=== PATIENT | male | born 1955 | race Two or more races ===

== ENCOUNTER 2024-05-29 00:28 | Emergency (ER) | payer MEDICARE, MEDICAID, SELFPAY ==
[2024-05-29 00:52] VITALS: BP 169/87; PULSE 106; RESP 18; TEMP 36.7; O2SAT 99; BMI 23.6
--- NOTE | 2024-05-29 01:05 | PD.EDRME ---
Rapid Medical Screening Exam RME Arrival date/time: 05/29/24 00:28 68 year old male present to ED for c/o of elevated blood pressure. pt is unsure of what he takes for blood pressure. I have greeted and performed a focused initial assessment of this patient. A comprehensive ED assessment and evaluation of the patient, analysis of all test results, and completion of the medical decision making process will be conducted by additional ED providers. Chief Complaint: General Adult/Misc Complain Time Seen by Provider: 05/29/24 00:29 Vital signs: Vital Signs Temperature 98.1 F 05/29/24 00:52 Pulse Rate 106 H 05/29/24 00:52 Respiratory Rate 18 05/29/24 00:52 Blood Pressure 169/87 H 05/29/24 00:52 Pulse Oximetry (%) 99 05/29/24 00:52 Oxygen Delivery Method Room Air 05/29/24 00:52
[2024-05-29 01:57] LABS: Basophils # (Auto) 0.1 Thou/mm3 (0.0-0.2); Basophils % (Auto) 0 % (0-2.5); Eosinophils # (Auto) 0.4 Thou/mm3 (0.0-0.5); Eosinophils % (Auto) 3 % (0-10); Hematocrit 33.8 % (41.0-53.0); Hemoglobin 10.3 g/dL (13.5-16.0); Immature Granulocytes % (Auto) 0 % (0-0); Immature Granulocytes Auto 0.02 Thou/mm3 (0.00-0.00); Lymphocytes # (Auto) 1.6 Thou/mm3 (1.0-4.8); Lymphocytes % (Auto) 14 % (10-50); Mean Corpuscular HGB Conc 30.5 g/dl (31.0-37.0); Mean Corpuscular Hemoglobin 22.2 pg (25.0-35.0); Mean Corpuscular Volume 73 fL (80-100); Monocytes # (Auto) 0.9 Thou/mm3 (0.0-0.8); Monocytes % (Auto) 8 % (0-12); Neutrophils # (Auto) 8.2 Thou/mm3 (1.8-7.7); Neutrophils % (Auto) 74 % (37-80); Nucleated Red Blood Cell % 0 /100 WBC (0); Platelet Count 375 Thou/mm3 (140-440); RDW Standard Deviation 48.5 fL (35.1-43.9); Red Blood Count 4.65 Miln/mm3 (4.50-5.90); White Blood Count 11.2 Thou/mm3 (3.8-10.6)
[2024-05-29 02:15] LABS: Alanine Aminotransferase 14 U/L (10-49); Albumin, Serum 4.9 gm/dL (3.4-4.8); Albumin/Globulin Ratio 1.4 (1.2-2.2); Alkaline Phosphatase 149 U/L (46-116); Anion Gap 10 (7-16); Aspartate Amino Transferase 16 U/L (0-34); BUN/Creatinine Ratio 12 Ratio (12-20); Bilirubin,Total 0.3 mg/dL (0.3-1.2); Blood Urea Nitrogen 26 mg/dL (9-23); Calcium 9.8 mg/dL (8.3-10.6); Calcium (Corrected) 9.8 mg/dL (8.5-10.1); Carbon Dioxide 25.4 mMol/L (20.0-31.0); Chloride 102 mMol/L (98-107); Creatinine (Component) 2.2 mg/dL (0.6-1.3); Estimated Creatinine Clearance 27.3 mL/min (>60); Globulin 3.4 gm/dL (2.3-3.5); Glucose 118 mg/dL (74-106); Osmolality,Calculated 279 (275-295); Potassium 3.9 mMol/L (3.4-5.1); Sodium 137 mMol/L (136-145); Total Protein 8.3 gm/dL (5.7-8.2); eGFR 32 See Note
--- NOTE | 2024-05-29 03:00 | PC.NURSE ---
no answer at er lobby or outside er to be re evaluated.
--- NOTE | 2024-05-29 03:15 | PC.NURSE ---
no answer at er lobby or outside er.
--- NOTE | 2024-05-29 03:30 | PC.NURSE ---
no answer at er lobby or outside er.
== END 2024-05-29 05:10 | disposition left against medical advice (07) ==
PROVIDERS: Physician Assistant; Emergency Provider Emergency Medicine
DX: R03.0 Elevated blood-pressure reading, without diagnosis of hypertension (principal); Z53.29 Procedure and treatment not carried out because of patient's decision for other reasons
CPT/HCPCS: 36415; 80053; 85025; 99281

== ENCOUNTER 2024-10-04 14:04 | Emergency (ER) | payer MEDICARE, MEDICAID, SELFPAY ==
--- NOTE | 2024-10-04 14:25 | EDNOTE_ITS ---
<Statement entered by Vickie Wilkinson MD - 10/05/24 06:12> As co-signing physician, I was present and available for consult prn. I concur with the plan and care as documented by the midlevel provider. ED General RME/HPI General Chief complaint: General Adult/Misc Complain Stated complaint: GENERALIZED BODY PAIN Time Seen by Provider: 10/04/24 14:23 Arrival date/time: 10/04/24 14:04 CC: Body ache HPI onset this morning, patient states numbness hands and pain throughout his body from his neck to his feet. Today's episode started this morning and is been waxing and waning but not resolved completely no medicines taken he is escorted to the ER via EMS and PD patient is coming from the detention. Patient is awake alert oriented EMS report tachycardic but otherwise unremarkable vital signs. Patient is awake alert answering all questions appropriately. Patient states history of these episodes which began only after becoming incarcerated. Patient denies chest pain shortness of breath or difficulty breathing. Related Data Home Medications ?Medication ?Instructions ?Recorded ?Confirmed UNK BP MED 1 tab PO QDAY ##0 07/31/14 Previous Rx's ?Medication ?Instructions ?Recorded aspirin 325 mg tablet,delayed 325 mg PO QDAY #30 tabs 07/06/23 release Allergies Allergy/AdvReac Type Severity Reaction Status Date / Time No Known Allergies Allergy Verified 07/05/23 22:58 Review of Systems Review of Systems Narrative Review of Systems: GEN: No fever, no chills, no weight loss, +body aches EYES: No discharge, no visual changes, no pain HEENT: No ear pain, no congestion, no sore throat PULM: No shortness of breath, no cough, no congestion CV: No chest pain, no dyspnea on exertion, no palpitations GI: No nausea, no vomiting, no diarrhea, no pain, no constipation : No frequency, no urgency, no dysuria MUSC/SKEL: No joint pain, no back pain SKIN: No rash PSYCH: No hallucinations, no depression HEME/LYMPH: No easy bleeding or bruising tendencies NEURO: No weakness, no headache ED Exam Narrative Physical exam: [General: Appears not in any acute distress Head normocephalic HEENT: Within acceptable limits Neck is supple nontender Chest equal chest rise nontender to palpation Respiratory: Clear to auscultation no wheezes crackles or rubs CV: Rate rhythm is regular no murmurs rubs or clicks Abdomen is distended secondary to body habitus soft nontender no masses positive bowel sounds all 4 quadrants Back: No CVA tenderness no spinous process tenderness from cervical spine thoracic and lumbar spine Skin: Intact no petechiae rash induration ulceration or crepitus Extremities: Moving all extremity against resistance cap refill less than 2 seconds neurosensory intact, no joint edema full range of motion of all extremities Neuro: Awake alert oriented x3 Glascow coma 15 no focal deficits] Course Quality Measures none Orders Category Date Time Status CBC Stat Lab 10/04/24 14:38 Completed CMP [Comprehensive Metabolic Panel] Stat Lab 10/04/24 14:38 Completed Drug Screen,Urine Stat Lab 10/04/24 14:26 Completed Urinalysis Stat Lab 10/04/24 14:26 Completed Ketorolac Inj [Toradol Inj] Med 10/04/24 14:29 Discontinued 15 mg IM X1 ONE Vital Signs Vital signs: Vital Signs Temperature 99.6 F 10/04/24 14:27 Pulse Rate 99 10/04/24 14:27 Respiratory Rate 20 10/04/24 14:27 Blood Pressure 139/88 H 10/04/24 14:27 Pulse Oximetry (%) 96 10/04/24 14:27 Oxygen Delivery Method Room Air 10/04/24 14:27 [facility] Patient data External records reviewed:: [facility] previous records and EMS form Clinical information provided by:: patient, EMS and law enforcement Social determinants that could affect healthcare access:: none Patient has the following chronic illnesses:: None How is presenting disease/condition affected by chronic disease/condition?: u neffected by Evaluation data The following diagnostics were reviewed and interpreted by me:: lab results Lab and/or radiology exams considered but not ordered:: CBC shows no leukocytosis the patient is anemic and H&H of 8.9 and 30.7 respectively. RDW is elevated where MCV MCH and MCHC are all low. Platelet count is normal. CMP shows no significant electrolyte imbalances renal impairment blood sugar at 288. Urine is negative Guaiac is negative. Interpretation Summary: All symptoms have resolved after the ketorolac shot. Guaiac is negative, patient is anemic it looks like he has been anemia for some time. Patient advised to follow-up. Patient's blood glucose of 288 patient denies any history of diabetes. Medications Medications considered but not ordered:: None Medication administrations:: Medication Administration History Discontinued Medications Ketorolac Tromethamine (Ketorolac Inj 60 Mg/2 Ml Vial) 15 mg IM X1 ONE Stop: 10/04/24 14:30 Last Admin: 10/04/24 15:10 Dose: 15 mg Documented By: DO None Consultations Consultation(s) initiated? (list below): No Diagnosis Differential Diagnosis ED Complaint MDM: Sepsis infection diabetes Most likely diagnosis given after review of the tests above:: Elevated blood sugar, anemia Admission Indicated Admission indicated?: not indicated Explain why admission is indicated or not indicated:: Stable for return to detention Admission Request Was there a request for admission?: No Disposition Plan Disposition Plan: Discharge Discharge Attestation Discharge Attestation: The patient and all family members were given an opportunity to ask questions and understood the discharge instructions. Discharge instructions specifically effects, indications for sooner follow up or return to the emergency department, and the expected course of current diagnosis. Patient condition: Stable Medical Decision Making Differential Diagnosis Differential Diagnosis: Sepsis infection diabetes Lab Data 10/04/24 14:38 10/04/24 14:38 Labs: Lab Results 10/04/24 10/04/24 Range/Units 14:26 14:38 WBC 10.4 (3.8-10.6) Thou/mm3 RBC 4.46 L (4.50-5.90) Miln/mm3 Hgb 8.9 L (13.5-16.0) g/dL Hct 30.7 L (41.0-53.0) % MCV 69 L (80-100) fL MCH 20.0 L (25.0-35.0) pg MCHC 29.0 L (31.0-37.0) g/dl RDW Std Deviation 46.9 H (35.1-43.9) fL Plt Count 301 (140-440) Thou/mm3 Neut % (Auto) 75 (37-80) % Lymph % (Auto) 6 L (10-50) % Wise % (Auto) 11 (0-12) % Eos % (Auto) 7 (0-10) % Baso % (Auto) 1 (0-2.5) % Neut # (Auto) 7.8 H (1.8-7.7) Thou/mm3 Lymph # (Auto) 0.6 L (1.0-4.8) Thou/mm3 Wise # (Auto) 1.1 H (0.0-0.8) Thou/mm3 Eos # (Auto) 0.7 H (0.0-0.5) Thou/mm3 Baso # (Auto) 0.1 (0.0-0.2) Thou/mm3 Immature Gran # (Auto) 0.03 H (0.00-0.00) Thou/mm3 Absolute Nucleated RBC 0.00 (0.00-0.00) Thou/mm3 Immature Gran % 0 (0-0) % Nucleated RBC % 0 (0) /100 WBC Sodium 136 (136-145) mMol/L Potassium 4.3 (3.4-5.1) mMol/L Chloride 102 (98-107) mMol/L Carbon Dioxide 26.2 (20.0-31.0) mMol/L Anion Gap 8 (7-16) BUN 16 (9-23) mg/dL Creatinine 1.2 (0.6-1.3) mg/dL Estim Creat Clear Calc 53.7 L (>60) mL/min eGFR > 60 (60 - ) See Note BUN/Creatinine Ratio 13 (12-20) Ratio Glucose 288 H (74-106) mg/dL Calculated Osmolality 284 (275-295) Calcium 8.8 (8.3-10.6) mg/dL Corrected Calcium 8.8 (8.5-10.1) mg/dL Total Bilirubin 0.3 (0.3-1.2) mg/dL AST 14 (0-34) U/L ALT 18 (10-49) U/L Alkaline Phosphatase 145 H (46-116) U/L Total Protein 7.4 (5.7-8.2) gm/dL Albumin 4.1 (3.4-4.8) gm/dL Globulin 3.3 (2.3-3.5) gm/dL Albumin/Globulin Ratio 1.2 (1.2-2.2) Ur Collection Type Clean Catch Urine Color Colorless A (Lt Yel-Yel) Urine Clarity Clear (Clear/Hazy) Urine pH 7.0 (5.0-7.0) Ur Specific Stowell 1.013 (1.001-1.035) Urine Protein Negative (Neg - Trace) Urine Glucose (UA) 4+ A (Negative) Urine Ketones Negative (Negative) Urine Blood Negative (Negative) Urine Nitrite Negative (Negative) Urine Bilirubin Negative (Negative) Urine Urobilinogen (Auto) Negative (0.0-1.0) mg/dL Ur Leukocyte Esterase Negative (Negative) Urine RBC 3 (0-3) /hpf Urine WBC < 1 (0-5) /hpf Ur Squamous Epith Cells < 1 (0-5) /hpf Urine Bacteria None (None) Urine Opiates Screen Negative (Negative) Urine Fentanyl Screen Negative (Negative) Ur Barbiturates Screen Negative (Negative) U Amphetamin/Meth Scrn Negative (Negative) U Benzodiazepines Scrn Negative (Negative) U Cocaine Metab Screen Negative (Negative) U Marijuana (THC) Screen Negative (Negative) Discharge Plan Plan Patient Disposition: HOME (Self Care) Patient condition on transfer: Stable Prescriptions/Referrals Prescriptions/Med Rec: No Action UNK BP MED 1 tab PO QDAY Qty: 0 aspirin 325 mg tablet,delayed release (DR/EC) 325 mg PO QDAY Qty: 30 0RF Referrals: No Primary/Family,Physician [Primary Care Provider] - In 1 week Problem List Clinical Impression: Medical clearance for incarceration, Anemia, Body aches, Hyperglycemia Patient/Caregiver Discharge Instructions Education Materials: Anemia, Glucose Check Steps, ED Anemia Type Not Specified Additional Instructions: Patient is anemic but not low enough to be transfused guaiac is negative, this patient needs an outpatient workup for his anemia. In addition but glucose of 288 I suspect this patient is diabetic we will need of continued workup on an outpatient basis to determine diabetes and whether medication should be started. All symptoms are resolved with ketorolac injection. No other acute finding. Patient will be discharged back to detention Print Language: Setswana Stand Alone Forms: [employer] Award Info., Patient Portal Info Letter PA/STACY Supervising Physician PA/STACY Supervising Physician: Lane Cooper ENP
[2024-10-04 14:27] VITALS: BP 139/88; PULSE 99; RESP 20; TEMP 37.6; O2SAT 96
[2024-10-04 14:29] VITALS: BMI 21.9
[2024-10-04 14:34] LABS: Collection Type, Urine Clean Catch
[2024-10-04 14:43] LABS: Bilirubin,Urine Negative (Negative); Blood,Urine Negative (Negative); Clarity,Urine Clear (Clear/Hazy); Color,Urine Colorless (Lt Yel-Yel); Glucose, Urine 4+ (Negative); Ketones,Urine Negative (Negative); Leukocyte Esterase,Urine Negative (Negative); Nitrite,Urine Negative (Negative); Protein,Urine Negative (Neg - Trace); RBC,Urine 3 /hpf (0-3); Specific Gravity,Urine 1.013 (1.001-1.035); Squamous Epithelial Cell,Urine < 1 /hpf (0-5); Urobilinogen,Urine Negative mg/dL (0.0-1.0); WBC,Urine < 1 /hpf (0-5)
[2024-10-04 14:48] LABS: Amphetamine/Methamp Scrn,U Negative (Negative); Barbiturate Screen,Urine Negative (Negative); Benzodiazepines Screen,Urine Negative (Negative); Benzoylecgonine Screen, Ur Negative (Negative); Fentanyl Screen,Urine Negative (Negative); Opiate Screen,Urine Negative (Negative); THC Screen,Urine Negative (Negative)
[2024-10-04 14:53] LABS: Basophils # (Auto) 0.1 Thou/mm3 (0.0-0.2); Basophils % (Auto) 1 % (0-2.5); Eosinophils # (Auto) 0.7 Thou/mm3 (0.0-0.5); Eosinophils % (Auto) 7 % (0-10); Hematocrit 30.7 % (41.0-53.0); Hemoglobin 8.9 g/dL (13.5-16.0); Immature Granulocytes % (Auto) 0 % (0-0); Immature Granulocytes Auto 0.03 Thou/mm3 (0.00-0.00); Lymphocytes # (Auto) 0.6 Thou/mm3 (1.0-4.8); Lymphocytes % (Auto) 6 % (10-50); Mean Corpuscular Volume 69 fL (80-100); Monocytes # (Auto) 1.1 Thou/mm3 (0.0-0.8); Monocytes % (Auto) 11 % (0-12); Neutrophils # (Auto) 7.8 Thou/mm3 (1.8-7.7); Neutrophils % (Auto) 75 % (37-80); Nucleated Red Blood Cell % 0 /100 WBC (0); Platelet Count 301 Thou/mm3 (140-440); RDW Standard Deviation 46.9 fL (35.1-43.9); Red Blood Count 4.46 Miln/mm3 (4.50-5.90); White Blood Count 10.4 Thou/mm3 (3.8-10.6)
[2024-10-04 15:10] LABS: Alanine Aminotransferase 18 U/L (10-49); Albumin, Serum 4.1 gm/dL (3.4-4.8); Albumin/Globulin Ratio 1.2 (1.2-2.2); Alkaline Phosphatase 145 U/L (46-116); Anion Gap 8 (7-16); Aspartate Amino Transferase 14 U/L (0-34); BUN/Creatinine Ratio 13 Ratio (12-20); Bilirubin,Total 0.3 mg/dL (0.3-1.2); Blood Urea Nitrogen 16 mg/dL (9-23); Calcium 8.8 mg/dL (8.3-10.6); Calcium (Corrected) 8.8 mg/dL (8.5-10.1); Carbon Dioxide 26.2 mMol/L (20.0-31.0); Chloride 102 mMol/L (98-107); Creatinine (Component) 1.2 mg/dL (0.6-1.3); Estimated Creatinine Clearance 53.7 mL/min (>60); Globulin 3.3 gm/dL (2.3-3.5); Glucose 288 mg/dL (74-106); Osmolality,Calculated 284 (275-295); Potassium 4.3 mMol/L (3.4-5.1); Sodium 136 mMol/L (136-145); Total Protein 7.4 gm/dL (5.7-8.2); eGFR > 60 See Note
[2024-10-04] MEDS: KETOROLAC INJ 60 MG/2 ML VIAL 15 MG IM (15:10)
[2024-10-04 16:08] VITALS: BP 136/75; PULSE 95; RESP 18; O2SAT 99
== END 2024-10-04 16:30 ==
PROVIDERS: Registered Nurse General Practice; Emergency Provider Emergency Medicine
DX: Z02.89 Encounter for other administrative examinations (principal); D64.9 Anemia, unspecified; R73.9 Hyperglycemia, unspecified
CPT/HCPCS: 36415; 80053; 80307; 81001; 85025; 96372; 99283; J1885